=== PATIENT | female | born 1980 | race Caucasian/White ===

== ENCOUNTER → 2024-10-12 | Outpatient (CLI) | payer OTHER ==
[~2024-10-12] MED LIST: ARMO120T PO; COLA100C5 PO; E-Z-GAS II EFFERVESCENT PACKET (SODIUM BICARB./CITRIC ACID/SIMETHICONE) As Ordered ONE; E-Z-HD 98% w/w 340GM SUSP BTL As Ordered ONE; E-Z-PAQUE 96% w/w SUSP 176GM BTL As Ordered ONE; MOTR200T44 PO; PERCOCET PO; PREN1TAB11 PO; RA A500C4 PO; RANI-397 PO; URSO300C3 PO; VITAPRTA PO
== END ==
LOC: M RAD 09:37
PROVIDERS: ATTEND Physician Assistant Medical
DX: R13.10 Dysphagia, unspecified (principal)